=== PATIENT | female | born 1935 | race Caucasian/White ===

== ENCOUNTER → 2017-06-20 | Outpatient (CLI) | payer OTHER ==
[~2017-06-20] MED LIST: ADVIN10/60 INH; AMIO200T4 PO; ASPI-113 PO; ATOR-14 PO; ATV/1 PO; BENZ100C6 PO; CALCTAB65 PO; CARV3.12 PO; CELE100C PO; CHOL100027 PO; COEN1CAP37 PO; DIGO0.2576 PO; DOCU100C31 PO; FERRTAB18 PO; FURO40TA3 PO; HYDR-1838 PO; PANT40TA PO; PIRB200A INH; POTA10CA28 PO; PRED10TA PO; PSEU60TA80 PO; SENN-61 PO; TEMA30CA4 PO; TRIA3AER NAE
[2017-06-20 19:14] LABS: BLOOD UREA NITROGEN 24 mg/dl (7-18); BUN/CREATININE RATIO 16.8 (10-20)
== END | disposition home or self-care (01) ==
LOC: C.LAB 18:16
PROVIDERS: ATTEND Internal Medicine Pulmonary Disease
DX: C34.90 Malignant neoplasm of unspecified part of unspecified bronchus or lung (principal)

== ENCOUNTER → 2017-06-26 | Outpatient (CLI) | payer OTHER ==
--- NOTE | 2017-06-26 11:34 | DIAGNOSTIC IMAGING REPORT ---
CT SCAN OF THE CHEST WITHOUT IV CONTRAST CLINICAL HISTORY: Lung cancer. COMPARISON STUDY: Chest CT scans dated 06/17/2016, 03/18/2015 and 01/28/2011. TECHNIQUE: CT scan of the thorax was performed from the thoracic inlet to the upper abdomen. Images are reviewed in the axial, sagittal, and coronal planes. IV contrast was not administered for this examination as per the referring clinician. A dose lowering technique was utilized adhering to the principles of ALARA. CT DOSE: 376.98 mGycm FINDINGS: Thyroid: The right thyroid lobe is enlarged and heterogeneous. The left thyroid lobe appears atrophic. Thoracic aorta: There is atherosclerotic calcification of the thoracic aorta, which is normal in caliber and demonstrates standard 3-vessel arch anatomy. A left subclavian central venous infusion port is in place. Heart: A cardiac pacemaker is present within the right chest wall with epicardial pacing leads. The heart is enlarged and without pericardial effusion. There is lipomatous hypertrophy of the interatrial septum. The pulmonary trunk is markedly dilated, measuring 4.5 cm in diameter. This suggests pulmonary artery hypertension. Lungs and pleural spaces: Advanced emphysema is observed. Minimal layering secretions are seen in the trachea. There is no airspace consolidation typical for pneumonia. No pleural effusion is identified. There are scattered calcified granulomas. Scarring and round atelectasis in the peritoneum mediastinal left lower lobe is similar to prior studies. A linear band of fibrosis and scarring is again seen in the right upper lobe which extends to the right hilum. There is a 7.5 mm irregular pulmonary nodule in the left lower lobe seen on image #196. Mediastinum: There are numerous small mediastinal lymph nodes, some of which are mildly enlarged. A precarinal node seen on image #108 measures 1.1 cm in short axis. A pretracheal node on image #93 measures 0.9 cm in short axis. Dayna: Not well assessed without IV contrast. Axillae: There is no axillary lymphadenopathy. Upper abdomen: A tiny hiatal hernia is noted. No adrenal lesion is seen. The liver appears slightly hyperdense, possibly related to amiodarone therapy. Skeletal structures: The skeletal structures are osteopenic. Degenerative change and hyperkyphosis are noted in the thoracic spine. No lytic or blastic bony lesions are seen. Advanced arthritic change is seen in the shoulders. There are healed bilateral rib fractures. An electronic device is present within the right paraspinous soft tissues. Intrathecal leads are partially imaged extending towards the lumbar region. IMPRESSION: 1. Cardiomegaly and emphysema with evidence of pulmonary artery hypertension. 2. There is a large irregular band of fibrosis/scarring in the right upper lobe. This is similar to previous and likely resents post treatment change. Residual tumor would be impossible to exclude. 3. Scarring and round atelectasis at the left lung base are also similar to previous. 4. A 7.5 mm left lower lobe pulmonary nodule remains indeterminant but is not significantly changed from 03/18/2015. No new pulmonary nodule is seen. 5. There is no airspace consolidation typical for pneumonia or pleural effusion. 6. Mildly enlarged mediastinal lymph nodes are of indeterminant significance and similar to previous. 7. Additional findings as above. Electronically signed by: Slava Aviles M.D. 06/26/2017 11:32 AM Dictated Date/Time: 06/26/2017 11:18 AM
== END | disposition home or self-care (01) ==
LOC: C.CTS 10:55
PROVIDERS: ATTEND Internal Medicine Pulmonary Disease
DX: C34.90 Malignant neoplasm of unspecified part of unspecified bronchus or lung (principal); J44.9 Chronic obstructive pulmonary disease, unspecified; R91.1 Solitary pulmonary nodule

== ENCOUNTER 2017-12-21 10:47 | Emergency (ER) | payer OTHER ==
[~2017-12-21] VITALS: Ht 167.6 cm; Wt 67.0 kg
[~2017-12-21 10:47] MED LIST changes: +BENZ-54 PO; -BENZ100C6 PO
[2017-12-21 10:56] VITALS: TEMP 37; Ht 167.6 cm; Wt 67.0 kg
[2017-12-21] MEDS ORDERED: ONDANSETRON INJ 2 MG/ML 2 ML VIAL IV STA (11:02)
[2017-12-21] MEDS ORDERED: MoRPHine SULFATE 4 MG/ML 1 ML CARP\\VIAL IV STA (11:02)
--- NOTE | 2017-12-21 11:35 | DIAGNOSTIC IMAGING REPORT ---
LEFT ANKLE 3 VIEWS CLINICAL HISTORY: Left ankle pain. FINDINGS: 3 views of the left ankle are obtained. No prior studies are available for comparison at the time of dictation. The skeletal structures are osteopenic. No fracture is seen. The ankle mortise is intact. Enthesophytes arise from the medial malleolus. There are dorsal and plantar calcaneal heel spurs. Degenerative spurring is seen along the dorsal aspect of the tarsal bones. A joint effusion is noted. Soft tissue edema is present around the foot and ankle. There is mild atherosclerotic calcification of the regional arteries. IMPRESSION: 1. Soft tissue swelling and joint effusion. There is no radiographic evidence of left ankle fracture. 2. Osteopenia, heel spurs, and degenerative change as above. Electronically signed by: Slava Aviles M.D. 12/21/2017 11:33 AM Dictated Date/Time: 12/21/2017 11:32 AM
[2017-12-21 11:57] LABS: BASO % 0.1 %; BASO ABS # 0.01 K/uL (0-0.2); EOS % 0.3 %; EOS ABS # 0.04 K/uL (0-0.5); HEMATOCRIT 34.8 % (37-47); HEMOGLOBIN 11.2 g/dL (12.0-16.0); IG# 0.03 K/uL (0.00-0.02); LYMPH % 5.8 %; LYMPH ABS # 0.72 K/uL (1.2-3.4); MEAN CELL VOLUME 88.3 fL (80-100); MEAN CORPUSCULAR HEMOGLOBIN 28.4 pg (25-34); MEAN CORPUSCULAR HGB CONC 32.2 g/dl (32-36); MEAN PLATELET VOLUME 9.7 fL (7.4-10.4); MONO % 10.9 %; MONO ABS # 1.35 K/uL (0.11-0.59); NEUT % 82.7 %; NEUT ABS # 10.18 K/uL (1.4-6.5); PLATELET COUNT 253 K/uL (130-400); RED CELL DISTRIBUTION WIDTH CV 15.5 % (11.5-14.5); RED CELL DISTRIBUTION WIDTH SD 50.5 fL (36.4-46.3); WHITE BLOOD COUNT 12.33 K/uL (4.8-10.8)
[2017-12-21 12:14] LABS: CALCIUM 8.9 mg/dl (8.5-10.1); CREATININE 0.97 mg/dl (0.60-1.20); POTASSIUM 3.9 mmol/L (3.5-5.1); URIC ACID 5.1 mg/dl (2.6-7.2)
--- NOTE | 2017-12-21 12:22 | DIAGNOSTIC IMAGING REPORT ---
VENOUS DOPPLER LWR EXT BILA CLINICAL HISTORY: 82 years-old Female presenting with recent long trip, clinical concern for deep venous thrombosis. TECHNIQUE: Real-time grayscale and color and spectral Doppler ultrasound imaging of the veins of the bilateral lower extremities was performed. Compression and augmentation were also utilized. COMPARISON: 05/15/2011. FINDINGS: Right: Common femoral vein: Patent. Hyperdynamic waveforms. Greater saphenous vein: Patent. Deep femoral vein: Patent. Femoral vein: Patent. Popliteal vein: Patent. Calf veins: Patent. Left: Common femoral vein: Patent. Hyperdynamic waveforms. Greater saphenous vein: Patent. Deep femoral vein: Patent. Femoral vein: Patent. Popliteal vein: Patent. Calf veins: Patent. Other: None. IMPRESSION: 1. No evidence of deep venous thrombosis. 2. Hyperdynamic waveforms in the common femoral veins could suggest tricuspid regurgitation or right heart failure. Electronically signed by: Anthony Ulloa M.D. 12/21/2017 12:21 PM Dictated Date/Time: 12/21/2017 12:19 PM
[2017-12-21] MEDS ORDERED: IPRA1AER2 INH (12:55)
[2017-12-21] MEDS ORDERED: LNX125 PO (12:55)
[2017-12-21] MEDS ORDERED: MECL1TAB40 PO (12:55)
[2017-12-21] MEDS ORDERED: ASPI81TA28 PO (12:55)
[2017-12-21] MEDS ORDERED: FLUT1SPR12 NAE (12:55)
[2017-12-21] MEDS ORDERED: ATOR10TA82 PO (12:55)
[2017-12-21] MEDS ORDERED: VNTHFA/IN INH (12:57)
[2017-12-21] MEDS ORDERED: METHYLPREDNISOLONE 125 MG VIAL IV STA (13:15)
--- NOTE | 2017-12-21 16:50 | EMERGENCY ROOM VISIT NOTE ---
History Report prepared by Milagro: Norris Kong Under the Supervision of: Dr. Armando Alarcon D.O. First contact with patient: 10:57 Chief Complaint: ANKLE PAIN Stated Complaint: LEG PAIN History of Present Illness The patient is an 82 year old female who presents to the Emergency Room with complaints of pain and swelling in the left knee, leg, and ankle that began two days ago. The patient states that the symptoms initially started 2 days ago with pain in the knees bilaterally, but now the left knee is much worse. The majority of her pain is in the left ankle. She rates the severity of the pain in the left ankle as a 10/10 in severity, and is worsened by even lightly touching the ankle. She is normally on 3 liters of oxygen at baseline for COPD. The patient states that she just returned from [place] and drove herself in her car. Pt denies headache, change in vision, fevers, chest pain, shortness of breath, nausea, vomiting, diarrhea, pain with urination, and melena. Source of History: patient Onset: 2 days ago Position: knee (left), ankle (left) Symptom Intensity: 10/10 Quality: other (swelling) Timing: worsening Associated Symptoms: No headache, No SOB, No nausea, No vomiting Review of Systems See HPI for pertinent positives & negatives. A total of 10 systems reviewed and were otherwise negative. Past Medical & Surgical Medical Problems: (1) Asthma (2) Heart disease Surgical Problems: (1) Bronchitis Asthma Heart disease Family History Omitted secondary to age. Social History Smoking Status: Former Smoker Alcohol Use: none Housing Status: lives alone Occupation Status: retired Current/Historical Medications Scheduled Albuterol Hfa (Ventolin Hfa), 2-4 PUFFS INH Q6H Amiodarone Hcl (Cordarone), 200 MG PO DAILY Aspirin (Aspirin Ec), 81 MG PO DAILY Atorvastatin (Lipitor), 10 MG PO HS Calcium Carbonate-Vitamin D (Calcium 500 + D), 1 TAB PO DAILY Cholecalciferol (Vitamin D 1000 Unit), 5,000 INTER.UNIT PO DAILY Coenzyme Q10 (Ubidecarenone) (Co Q-10), 200 MG PO DAILY Digoxin (Digoxin), 0.125 MG PO DAILY Docusate Sodium (Docusate Sodium), 200 MG PO HS Fluticasone Propionate (Nasal) (Flonase Allergy Relief ), 1 SPRAY AMY DAILY Furosemide (Lasix), 40 MG PO DAILY Ipratropium-Albuterol (Combivent Respimat), 1 PUFFS INH QID Iron-Vitamin C (Vitron-C), 1 TAB PO DAILY Lorazepam (Ativan), 1 MG PO UD Meclizine HCl (Meclizine HCl), 12.5 TAB PO UD Pantoprazole Sodium (Protonix), 40 MG PO BID Potassium Chloride (Micro-K Ext Rel), 20 MEQ PO TID Prednisone Tab (Prednisone), 10 MG PO UD Temazepam (Restoril), 30 MG PO HS Scheduled PRN Pseudoephedrine-Guaifenesin (Mucinex D), 600 MG PO Allergies Coded Allergies: Oxycodone (Verified Allergy, Unknown, ., 12/21/17) Trazodone (Unverified Adverse Reaction, Mild, VOMITING, SWEAT, 12/21/17) Physical Exam Vital Signs Date Time Temp Pulse Resp B/P (MAP) Pulse Ox O2 Delivery O2 Flow Rate FiO2 12/21/17 15:41 60 16 103/62 94 Nasal Cannula 3.0 12/21/17 15:26 64 12/21/17 14:26 69 25 101/53 93 Nasal Cannula 3.0 12/21/17 12:45 65 16 107/57 91 Nasal Cannula 3.0 12/21/17 10:58 Nasal Cannula 3.0 12/21/17 10:56 37.0 74 20 116/56 91 3.0 12/21/17 10:55 68 Physical Exam GENERAL: Sitting up in bed, alert, well appearing, on nasal cannula, well nourished, no distress, non-toxic EYE EXAM: normal conjunctiva. OROPHARYNX: no exudate, no erythema, lips, buccal mucosa, and tongue normal and mucous membranes are moist NECK: supple, no nuchal rigidity, no adenopathy, non-tender LUNGS: Mild wheezing bilaterally. Normal chest wall mechanics HEART: +SCOTTY, S1 normal and S2 normal ABDOMEN: abdomen soft, non-tender, normo-active bowel sounds, no masses, no rebound or guarding. BACK: Back is symmetrical on inspection and there is no deformity, no midline tenderness, no CVA tenderness. SKIN: no rashes and no bruising UPPER EXTREMITIES: upper extremities are grossly normal. LOWER EXTREMITIES: Calves are equal bilaterally. There is full ROM of all joints except for the left ankle that has moderate pain with ROM. There is mild erythema of the lateral malleolus. DP are 2/4 bilaterally. NEURO EXAM: Normal sensorium, cranial nerves II-XII grossly intact, normal speech, no gross weakness of arms, no gross weakness of legs. Medical Decision & Procedures ER Provider Diagnostic Interpretation: Radiology results as stated below per my review and the radiologist's interpretation: LEFT ANKLE 3 VIEWS CLINICAL HISTORY: Left ankle pain. FINDINGS: 3 views of the left ankle are obtained. No prior studies are available for comparison at the time of dictation. The skeletal structures are osteopenic. No fracture is seen. The ankle mortise is intact. Enthesophytes arise from the medial malleolus. There are dorsal and plantar calcaneal heel spurs. Degenerative spurring is seen along the dorsal aspect of the tarsal bones. A joint effusion is noted. Soft tissue edema is present around the foot and ankle. There is mild atherosclerotic calcification of the regional arteries. IMPRESSION: 1. Soft tissue swelling and joint effusion. There is no radiographic evidence of left ankle fracture. 2. Osteopenia, heel spurs, and degenerative change as above. Electronically signed by: Slava Aviles M.D. 12/21/2017 11:33 AM Dictated Date/Time: 12/21/2017 11:32 AM3 VENOUS DOPPLER LWR EXT BILA CLINICAL HISTORY: 82 years-old Female presenting with recent long trip, clinical concern for deep venous thrombosis. TECHNIQUE: Real-time grayscale and color and spectral Doppler ultrasound imaging of the veins of the bilateral lower extremities was performed. Compression and augmentation were also utilized. COMPARISON: 05/15/2011. FINDINGS: Right: Common femoral vein: Patent. Hyperdynamic waveforms. Greater saphenous vein: Patent. Deep femoral vein: Patent. Femoral vein: Patent. Popliteal vein: Patent. Calf veins: Patent. Left: Common femoral vein: Patent. Hyperdynamic waveforms. Greater saphenous vein: Patent. Deep femoral vein: Patent. Femoral vein: Patent. Popliteal vein: Patent. Calf veins: Patent. Other: None. IMPRESSION: 1. No evidence of deep venous thrombosis. 2. Hyperdynamic waveforms in the common femoral veins could suggest tricuspid regurgitation or right heart failure. Electronically signed by: Anthony Ulloa M.D. 12/21/2017 12:21 PM Dictated Date/Time: 12/21/2017 12:19 PM Laboratory Results 12/21/17 11:45 Red Blood Count 3.94, Mean Corpuscular Volume 88.3, Mean Corpuscular Hemoglobin 28.4, Mean Corpuscular Hemoglobin Concent 32.2, Mean Platelet Volume 9.7, Neutrophils (%) (Auto) 82.7, Lymphocytes (%) (Auto) 5.8, Monocytes (%) (Auto) 10.9, Eosinophils (%) (Auto) 0.3, Basophils (%) (Auto) 0.1, Neutrophils # (Auto ) 10.18, Lymphocytes # (Auto) 0.72, Monocytes # (Auto) 1.35, Eosinophils # (Auto ) 0.04, Basophils # (Auto) 0.01 12/21/17 11:45 Test 12/21/17 11:45 White Blood Count 12.33 K/uL (4.8-10.8) Red Blood Count 3.94 M/uL (4.2-5.4) Hemoglobin 11.2 g/dL (12.0-16.0) Hematocrit 34.8 % (37-47) Mean Corpuscular Volume 88.3 fL (80-100) Mean Corpuscular Hemoglobin 28.4 pg (25-34) Mean Corpuscular Hemoglobin Concent 32.2 g/dl (32-36) Platelet Count 253 K/uL (130-400) Mean Platelet Volume 9.7 fL (7.4-10.4) Neutrophils (%) (Auto) 82.7 % Lymphocytes (%) (Auto) 5.8 % Monocytes (%) (Auto) 10.9 % Eosinophils (%) (Auto) 0.3 % Basophils (%) (Auto) 0.1 % Neutrophils # (Auto) 10.18 K/uL (1.4-6.5) Lymphocytes # (Auto) 0.72 K/uL (1.2-3.4) Monocytes # (Auto) 1.35 K/uL (0.11-0.59) Eosinophils # (Auto) 0.04 K/uL (0-0.5) Basophils # (Auto) 0.01 K/uL (0-0.2) RDW Standard Deviation 50.5 fL (36.4-46.3) RDW Coefficient of Variation 15.5 % (11.5-14.5) Immature Granulocyte % (Auto) 0.2 % Immature Granulocyte # (Auto) 0.03 K/uL (0.00-0.02) Anion Gap 5.0 mmol/L (3-11) Est Creatinine Clear Calc Drug Dose 43.3 ml/min Estimated GFR () 63.9 Estimated GFR (Non- 55.2 BUN/Creatinine Ratio 15.2 (10-20) Uric Acid 5.1 mg/dl (2.6-7.2) Calcium Level 8.9 mg/dl (8.5-10.1) Laboratory results per my review. Medications Administered Medications (Trade) Dose Ordered Sig/Juarez Route Start Time Stop Time Status Last Admin Dose Admin Morphine Sulfate (MoRPHine SULFATE INJ) 4 mg NOW STAT IV 12/21/17 11:02 12/21/17 11:07 DC 12/21/17 11:48 4 MG Ondansetron HCl (Zofran Inj) 4 mg NOW STAT IV 12/21/17 11:02 12/21/17 11:07 DC 12/21/17 11:47 4 MG Methylprednisolone Sodium Succinate (Solu-Medrol IV) 40 mg NOW STAT IV 12/21/17 13:15 12/21/17 13:17 DC 12/21/17 13:36 40 MG ED Course ED COURSE: Vital signs were reviewed and showed normal vitals The patients medical record was reviewed The above diagnostic studies were performed and reviewed. ED treatments and interventions as stated above. 1057: The patient was evaluated in room []. A complete history and physical examination was performed. 1102: Ordered Zofran 4 mg IV, Morphine Sulfate 4 mg IV. 1315: Ordered Solu-Medrol 40 mg IV. 1451: I discussed the case with Dr. Suzanne Bey [facility]. Someone will some to see the patient. 1519: [facility] Johnson Gan [facility] is in with the patient at this time. 1527: I discussed the case with Dr. Johnson Gan [facility] he suggests administering some NSAIDs and he will follow-up in the office. 1534: Upon reevaluation, the patient is resting in bed.I discussed my findings with the patient and she understands and agrees with the treatment plan. Based on the patients age, coexisting illnesses, exam and lab findings the decision to treat as an outpatient was made. The patient remained stable while under my care. The patient appeared well at the time of discharge. Medical Decision Differential diagnosis: Etiologies such as fracture, dislocation, neurovascular compromise, compartment syndrome, soft tissue injury, as well as others were entertained. Patient is an 82-year-old female who presents the ER for initially bilateral knee pain which resolved and now she is having left ankle pain. She does have some swelling and mild erythema on the left lateral ankle. She does have pain shortness range of motion. Mild leukocytosis. Uric acid was negative. X-rays show no fracture. Ultrasound without clot. Discuss with orthopedics who evaluated at bedside. Patient was given fluids and steroids. She did feel slightly better. She was updated at bedside after evaluation by orthopedics who believes that this is likely gout or pseudogout. They recommended NSAIDs and following up. I felt this is reasonable. Discussed with Pt concerning signs and symptoms to watch out for. Pt was instructed to follow up with their PCP and discussed with the patient their option to return to the ED at anytime for persistent or worsening symptoms. The appropriate anticipatory guidance and out-patient management, including indications for return to the emergency department, were explained at length to the patient and understood. Medication Reconcilliation Current Medication List: was personally reviewed by me Blood Pressure Screening Patient's blood pressure: Normal blood pressure Consults Time Called: 1527 Consulting Physician: Dr. Johnson Gan [facility] Returned Call: 1527 I discussed the case with Dr. Johnson Gan [facility] he suggests administering some NSAIDs and he will follow-up in the office. Impression Primary Impression: Ankle pain Scribe Attestation The scribe's documentation has been prepared under my direction and personally reviewed by me in its entirety. I confirm that the note above accurately reflects all work, treatment, procedures, and medical decision making performed by me. Departure Information Dispostion Home / Self-Care Referrals Cliff Hancock D.O. (PCP) Forms HOME CARE DOCUMENTATION FORM, IMPORTANT VISIT INFORMATION Patient Instructions My [facility] Additional Instructions Please follow up with your primary care doctor with in the next 24 hours. Any worsening of your symptoms, please return to the ED immediately. This includes any fevers greater than 100.4, worsening pain, chest pain, shortness breath, persistent nausea, vomiting, unable to eat or drink, weakness or numbness in her extremities, increased swelling, worsening pain, or any other concerning signs or symptoms from your standpoint. Please take Motrin 400 mg 3 times a day for the next 3 days. Problem Qualifiers Primary Impression: Ankle pain Chronicity: acute Laterality: left Qualified Codes: M25.572 - Pain in left ankle and joints of left foot
[2017-12-21 16:59] VITALS: BP 105/58; PULSE 63; O2SAT 93
--- NOTE | 2017-12-21 17:18 | CONSULTATION REPORT ---
DATE OF CONSULTATION: 12/21/2017 REASON FOR CONSULT: Left ankle pain. HISTORY OF PRESENT ILLNESS: The patient is an 82-year-old white female who we have been asked to see regarding her left ankle pain. She states that she has been having pain in her left ankle for approximately 2-3 days. She denies any general fevers but states that she did feel chilled, but also states that she just returned from [place] from the winter and that she has been chilled since she has been back in [place] due to the weather. No nausea or vomiting, no general malaise. She states that she has been having pain in her left lower extremity off and on and recently just had some pain in her right wrist that is now gone. She states that she was having difficulty ambulating and came into the Emergency Room. She denies any injury to the left ankle at this time. PAST MEDICAL HISTORY: She has a past medical history of depression, history of anemia, heart disease with [place] in 1981, history of lung carcinoma, asthma, CHF, anxiety. PAST SURGICAL HISTORY: She has had 2 back surgeries in the past. She has had open heart surgery as well as a right total knee arthroplasty, history of bronchoscopy, history of hysterectomy and bladder surgery, pacemaker implantation, left TKA. FAMILY HISTORY: CVA. SOCIAL HISTORY: The patient lives alone and is in the process of selling her house. She used to smoke, but no longer does so. No chronic use of alcohol. MEDICATIONS: Albuterol 2-4 puffs inhaled q. 6 hours, amiodarone 200 mg p.o. daily, aspirin 81 mg p.o. daily, atorvastatin 10 mg p.o. at bedtime, calcium carbonate plus D 1 tab p.o. daily, vitamin D 5000 IUs p.o. daily, CoQ10 200 mg p.o. daily, digoxin 0.125 mg p.o. daily, Colace 200 mg p.o. at bedtime, Flonase nasal spray 1 spray daily, Lasix 40 mg p.o. daily, Combivent 1 puff inhaled q.i.d., vitamin C p.o. daily 1 tab, Ativan 1 mg p.o. as directed, meclizine 12.5 mg p.o. as directed, potassium 20 mEq p.o. t.i.d., pantoprazole 40 mg p.o. b.i.d., prednisone 10 mg p.o. as directed as needed for a breathing rescue kit, Mucinex 600 mg p.o. p.r.n., temazepam 30 mg p.o. at bedtime. ALLERGIES: OXYCODONE AND TRAZODONE. ROS: As per ED Physician note PHYSICAL EXAMINATION: VITAL SIGNS: Showing a temperature 37.0, pulse 64, respirations 20 and BP 116/56 on admission. GENERAL: Upon entering the room, the patient is an elderly white female who is alert and oriented to person and place and time and is in no acute distress, pleasant, cooperative. She is sitting up in her bed. EXTREMITIES: Examination of the left lower extremity looking at the left ankle, she has some mild swelling of the ankle, mostly on the lateral aspect over the lateral malleolus that has just a slight hint of erythema noted around it. This is where the main area of swelling is noted. Dorsum of the foot is not overtly swollen and there is some mild heat to the lateral malleolar area. Mild tenderness noted on palpation over the lateral malleolus. Her medial aspect of the ankle feels normal as far as warmth and no overt swelling there. I noticed that just about anywhere that I palpate including going up the heck to the knee causes her some type of discomfort but not overtly so. She has some pain on palpation of the Achilles tendon, but I can feel no discrepancies there and there is no overt swelling. She has some mild pain on palpation of the calcaneus on the plantar surface as well as some mild pain on palpation of the dorsum of the foot. As far as range of motion, I can gently take her through passive range of motion from plantar flexion to neutral position and dorsiflexion causing her some mild discomfort. She does not have any overt pain in doing this. DP pulse present and sensation is intact of the left foot. She is able to move the toes at this time without causing any discomfort. XRAY of left Ankle: LEFT ANKLE 3 VIEWS CLINICAL HISTORY: Left ankle pain. FINDINGS: 3 views of the left ankle are obtained. No prior studies are available for comparison at the time of dictation. The skeletal structures are osteopenic. No fracture is seen. The ankle mortise is intact. Enthesophytes arise from the medial malleolus. There are dorsal and plantar calcaneal heel spurs. Degenerative spurring is seen along the dorsal aspect of the tarsal bones. A joint effusion is noted. Soft tissue edema is present around the foot and ankle. There is mild atherosclerotic calcification of the regional arteries. IMPRESSION: 1. Soft tissue swelling and joint effusion. There is no radiographic evidence of left ankle fracture. 2. Osteopenia, heel spurs, and degenerative change as above. ASSESSMENT: Painful left ankle. PLAN: No fx's identified. Joint effusion noted on xray. I do not feel this ankle is infected at this time. She does have a noted increased WBC count of 12,000. However, she is afebrile and is not complaining of any other overt symptoms. I do not feel an aspiration is warranted at this time. Noted uric acid was 5.1. She does not believe she has a history of rheumatoid arthritis but does have a history of osteoarthritis. Question of Psuedogout. I spoke to Dr. Alarcon. He will decide whether to give her low dose anti-inflammatory injection of Toradol, but we feel that at this time, she can be started on Indocin for short-term therapy and be weightbearing as tolerated with a walker at home. She states that she lives alone but she has plenty of family around that can help her and they will make arrangements to do so. If she has continuing symptoms, she can follow up with Dr. Palacios next week to be seen in the office; if the symptoms worsen and/or she starts having fevers, chills and rigors, then she should report back to the Emergency Room as soon as possible. TERA
== END 2017-12-21 17:01 | disposition home or self-care (01) ==
LOC: EDBD 10:47 → C.EDC 10:49
DX: M25.472 Effusion, left ankle (principal); D72.829 Elevated white blood cell count, unspecified; M19.90 Unspecified osteoarthritis, unspecified site; J45.909 Unspecified asthma, uncomplicated; I51.9 Heart disease, unspecified; Z79.82 Long term (current) use of aspirin; Z99.81 Dependence on supplemental oxygen; Z87.891 Personal history of nicotine dependence; Z88.6 Allergy status to analgesic agent; Z88.8 Allergy status to other drugs, medicaments and biological substances

== ENCOUNTER → 2018-01-23 | Outpatient (CLI) | payer OTHER ==
[~2018-01-23] MED LIST changes: -ADVIN10/60 INH; -ASPI-113 PO; +ASPI81TA28 PO; -ATOR-14 PO; +ATOR10TA82 PO; -BENZ-54 PO; -CARV3.12 PO; -CELE100C PO; -DIGO0.2576 PO; +FLUT1SPR12 NAE; -HYDR-1838 PO; +IPRA1AER2 INH; +LNX125 PO; +MECL1TAB40 PO; -PIRB200A INH; -SENN-61 PO; -TRIA3AER NAE; +VNTHFA/IN INH
[2018-01-23 10:15] LABS: HEMOGLOBIN 11.7 g/dL (12.0-16.0); MEAN CELL VOLUME 85.9 fL (80-100); MEAN CORPUSCULAR HEMOGLOBIN 27.9 pg (25-34); MEAN CORPUSCULAR HGB CONC 32.5 g/dl (32-36); MEAN PLATELET VOLUME 9.8 fL (7.4-10.4); PLATELET COUNT 281 K/uL (130-400); RED CELL DISTRIBUTION WIDTH CV 15.4 % (11.5-14.5); RED CELL DISTRIBUTION WIDTH SD 48.4 fL (36.4-46.3); WHITE BLOOD COUNT 10.85 K/uL (4.8-10.8)
[2018-01-23 13:34] LABS: ALBUMIN 3.2 gm/dl (3.4-5.0); ALT/SGPT 28 U/L (12-78); AST/SGOT 22 U/L (15-37); BLOOD UREA NITROGEN 20 mg/dl (7-18); CALCIUM 8.8 mg/dl (8.5-10.1); CARBON DIOXIDE 28 mmol/L (21-32); CREATININE 1.26 mg/dl (0.60-1.20); GLUCOSE 98 mg/dl (70-99); POTASSIUM 3.5 mmol/L (3.5-5.1); SODIUM 138 mmol/L (136-145)
[2018-01-23 13:47] LABS: ALKALINE PHOSPHATASE 105 U/L (45-117); CHOLESTEROL 139 mg/dl (0-200); LDL CHOLESTEROL CALCULATED 63 mg/dl; TOTAL PROTEIN 6.8 gm/dl (6.4-8.2)
== END | disposition home or self-care (01) ==
LOC: C.LAB1850 09:06
PROVIDERS: ATTEND Internal Medicine
DX: C34.31 Malignant neoplasm of lower lobe, right bronchus or lung (principal); E78.5 Hyperlipidemia, unspecified; I48.0 Paroxysmal atrial fibrillation